=== PATIENT | female | born 1980 | race Caucasian/White ===

== ENCOUNTER → 2019-01-04 | Outpatient (CLI) | payer BC ==
--- NOTE | 2019-01-04 11:03 | XR ---
EXAMINATION TYPE: XR cervical spine limited DATE OF EXAM: 01/04/2019 COMPARISON: NONE HISTORY: 38-year-old female with neck pain TECHNIQUE: 3 views FINDINGS: The predental space widening or prevertebral soft tissue swelling. Mild to moderate disc height loss and mild endplate spondylosis C4-C6 levels. Despite mild facet and uncovertebral joint degenerative c hange. Destruction of some facet arthropathy and cervicothoracic junction. Reverse of the normal cerv ical lordosis but with preserved alignment. Normal odontoid view. IMPRESSION: 1. Mild to moderate degenerative disc disease C4-C6. 2. Corresponding uncovertebral joint arthropathy. Additional facet arthropathy lower cervical spine. 3. Reversal of the normal cervical lordosis could be positional or due to muscle spasm.
== END ==
LOC: RADXRMAIN 06:55
PROVIDERS: ATTEND Family Medicine
DX: M50.321 Other cervical disc degeneration at C4-C5 level (principal); M50.322 Other cervical disc degeneration at C5-C6 level; M46.92 Unspecified inflammatory spondylopathy, cervical region; M12.88 Other specific arthropathies, not elsewhere classified, other specified site
CPT/HCPCS: 72040

== ENCOUNTER → 2019-11-02 | Outpatient (CLI) | payer OTHER ==
--- NOTE | 2019-11-02 08:31 | XR ---
EXAMINATION TYPE: XR lumbar spine 2 or 3V DATE OF EXAM: 11/02/2019 CLINICAL HISTORY: Lower extremity weakness and numbness. History of degenerative disc disease of the lumbar spine. Back pain. TECHNIQUE: Frontal and lateral images of the lumbar spine are obtained. COMPARISON: None FINDINGS: There are 5 lumbar type vertebral bodies identified. The lumbar spine shows satisfactory alignment without evidence of acute fracture or dislocation. Vertebral body heights and disk space he ights are within normal limits. Mild facet arthropathy at L4-L5 and L5-S1. The overlying soft tissue appears unremarkable. IMPRESSION: No acute fracture or malalignment is seen in the lumbar spine. Mild facet arthropathy of the lower lumbar spine.
== END | disposition home or self-care (01) ==
LOC: RADXRMAIN 08:09
PROVIDERS: ATTEND Family Medicine
DX: M47.816 Spondylosis without myelopathy or radiculopathy, lumbar region (principal); M47.817 Spondylosis without myelopathy or radiculopathy, lumbosacral region
CPT/HCPCS: 72100

== ENCOUNTER → 2020-12-24 | Outpatient (CLI) | payer OTHER, BC ==
--- NOTE | 2020-12-25 11:31 | MM ---
Reason for exam: screening (asymptomatic). Last mammogram was performed 6 years and 9 months ago. History: Took hormonal contraceptives for 18 years. Physical Findings: A clinical breast exam by your physician is recommended on an annual basis and results should be correlated with mammographic findings. MG 3D Screening Mammo W/Cad Bilateral CC and MLO view(s) were taken. Prior study comparison: April 07, 2014, mammogram, performed at [facility]. April 05, 2014, mammogram, performed at [facility]. The breast tissue is heterogeneously dense. This may lower the sensitivity of mammography. There is no discrete abnormality. No significant changes when compared with prior studies. ASSESSMENT: Negative, BI-RAD 1 RECOMMENDATION: Routine screening mammogram of both breasts in 1 year.
== END | disposition home or self-care (01) ==
LOC: RADMAMWWP 07:30
PROVIDERS: ATTEND Family Medicine
DX: Z12.31 Encounter for screening mammogram for malignant neoplasm of breast (principal)
CPT/HCPCS: 77063; 77067

== ENCOUNTER → 2022-12-23 | Outpatient (CLI) | payer BC ==
--- NOTE | 2022-12-23 08:14 | XR ---
EXAMINATION TYPE: XR lumbar spine 2 or 3V DATE OF EXAM: 12/23/2022 7:18 AM INDICATION: Patient age:Female; 42 years old; Reason for study: R52 M54.5; [facility]. COMPARISON: 11/02/2019 TECHNIQUE: Frontal, lateral and coned in L5-S1 lateral views of the spine. FINDINGS: No evidence of any acute osseous pathology. No evidence of loss of vertebral body height i s seen. There is normal alignment of the lumbar vertebral bodies. Mild scattered disc space narrowing . Multilevel marginal osteophyte formation throughout the visualized spine. There is facet joint arth ropathy throughout the spine. Scattered at least mild neural foraminal stenosis. IMPRESSION: 1. No acute fracture. 2. Mild multilevel disc degeneration.
--- NOTE | 2022-12-23 08:15 | XR ---
EXAMINATION TYPE: XR Hip Bilateral Complete DATE OF EXAM: 12/23/2022 7:18 AM INDICATION: Patient age:Female; 42 years old; Reason for study: M54.5 R52; COMPARISON: None. TECHNIQUE: The bilateral hips were examined in the frontal and lateral projections and a AP pelvis. FINDINGS: Right: No evidence for acute process, joint dislocation or significant soft tissue swelling. Osteophy te formation of the superior acetabulum of the hips. Left: No evidence for acute process, joint dislocation or significant soft tissue swelling. Osteophyt e formation of the superior acetabulum of the hips.\ IMPRESSION: 1. No evidence for acute process. 2. Mild bilateral hip osteoarthrosis.
== END | disposition home or self-care (01) ==
LOC: RADXRMAIN 06:56
PROVIDERS: ATTEND Family Medicine
DX: M51.36 Other intervertebral disc degeneration, lumbar region (principal); M16.0 Bilateral primary osteoarthritis of hip
CPT/HCPCS: 72100; 73521

== ENCOUNTER 2024-09-19 12:53 | Emergency (ER) | payer BC, OTHER ==
[2024-09-19 13:06] VITALS: RESP 18
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
--- NOTE | 2024-09-19 13:50 | XR ---
EXAMINATION TYPE: XR elbow complete LT DATE OF EXAM: 09/19/2024 COMPARISON: NONE CLINICAL INDICATION: Female, 44 years old with pain after history of contusion; TECHNIQUE: 3 views FINDINGS: There may be a trace anterior elbow joint effusion. No obvious elevation of the posterior f at-pad of the elbow. No acute fracture, subluxation, dislocation seen. IMPRESSION: Trace anterior elbow joint effusion, probably reactive. No acute osseous abnormality seen. If symptom s persist, follow-up can be performed. [facility], , 09/19/2024 1:47 PM
[2024-09-19 14:34] VITALS: BP 119/78; PULSE 67; TEMP 98
== END 2024-09-19 14:34 | disposition home or self-care (01) ==
LOC: EC 12:53
DX: S50.02XA Contusion of left elbow, initial encounter (principal); F17.200 Nicotine dependence, unspecified, uncomplicated; Z88.0 Allergy status to penicillin; W22.09XA Striking against other stationary object, initial encounter
CPT/HCPCS: 99283

== ENCOUNTER → 2025-01-05 | Outpatient (CLI) | payer OTHER ==
--- NOTE | 2025-01-05 09:57 | XR ---
EXAMINATION TYPE: XR lumbar spine 3V, XR pelvis AP view DATE OF EXAM: 01/05/2025 9:46 AM COMPARISON: 12/23/2022 CLINICAL INDICATION: Female, 44 years old with history of M47.816 spondylosis; [facility], pain FINDINGS: Lumbar spine: Slight levoconvex curvature of the lumbar spine 2022. 5 lumbar type vertebral bodies. Mild facet arthropathy mid to lower lumbar spine. Moderate dege nerative disc disease L5-S1. Vertebral body heights are preserved alignment maintained. Degenerative disc disease L5-S1 progressed from 2022. Pelvis: The hips appear symmetric and intact. SI joints appear symmetric and intact as does the pubic symphys is. No acute fracture, subluxation, dislocation seen. IMPRESSION: 1. Lumbar spine: Moderate degenerative disc disease L5-S1 progressed from 2022. Mild facet arthropath y mid to lower lumbar spine. No vertebral compression collapse or malalignment. 2. Pelvis: No specific radiographic abnormality seen. [facility], , 01/05/2025 9:55 AM
== END | disposition home or self-care (01) ==
LOC: RADXRMAIN 09:22
PROVIDERS: ATTEND Nurse Practitioner Adult Health
DX: M51.372 Other intervertebral disc degeneration, lumbosacral region with discogenic back pain and lower extremity pain (principal); M47.816 Spondylosis without myelopathy or radiculopathy, lumbar region
CPT/HCPCS: 72100; 72170